=== PATIENT | female | born 1930 | race Two or more races ===

== ENCOUNTER 2017-08-12 10:15 | Inpatient (IN) | payer OTHER ==
[~2017-08-12] VITALS: Ht 154.9 cm; Wt 63.5 kg
[2017-08-12 10:22] VITALS: BP 115/63
[2017-08-12] MEDS ORDERED: SYN.05 PO (10:36)
[2017-08-12] MEDS ORDERED: PRED1SUS OP (10:36)
[2017-08-12] MEDS ORDERED: SODI15SO OP (10:36)
[2017-08-12] MEDS ORDERED: CHOL400C2 PO (10:36)
[2017-08-12] MEDS ORDERED: MULT-1184 PO (10:36)
[2017-08-12] MEDS ORDERED: ALEN70TA1 PO (10:36)
[2017-08-12] MEDS ORDERED: [UNRECOGNIZED DRUG - CODE] PO (10:36)
[2017-08-12] MEDS ORDERED: DORZ10SO1 IO (10:36)
[2017-08-12] MEDS ORDERED: [UNRECOGNIZED DRUG - CODE] IO (10:36)
[2017-08-12] MEDS ORDERED: AMLO5TAB1 PO (10:36)
[2017-08-12] MEDS ORDERED: LISI20TA21 PO (10:36)
[2017-08-12] MEDS ORDERED: MEMA28CE1 PO (10:36)
[2017-08-12] MEDS ORDERED: CARV25TA PO (10:36)
[2017-08-12] MEDS ORDERED: TIM.5OS OP (10:36)
--- NOTE | 2017-08-12 10:38 | NUR ---
PT PLACED ON BED 6 ER MD AT BEDSIDE
--- NOTE | 2017-08-12 10:39 | NUR ---
Patient BIBA to bed 6 at this time.
--- NOTE | 2017-08-12 10:45 | NUR ---
PT BIBA FROM [facility] W/C/O LEFT HIP PAIN S/P FALL WHILE AMBULATING. PER MEDIC PT HAS BUMP ON THE BACK OF HER HEAD, ETIOLOGY UNKNOWN. HX ALZHEIMERS DISEASE, HYPOTHYROIDISM, HTN, HYPERLIPIDEMIA. DENIES N/V/D; SKIN IS PINK/WARM/DRY; AAOX4; LUNGS CLEAR BL; HR EVEN AND REGULAR; PT DENIES ANY FEVER, CP, SOB, OR COUGH AT THIS TIME; PATIENT STATES PAIN OF 9/10 AT THIS TIME; VSS; PATIENT POSITIONED FOR COMFORT; HOB ELEVATED; BEDRAILS UP X2; BED DOWN. ER MD MADE AWARE OF PT STATUS.
[2017-08-12] MEDS ORDERED: MORPHINE SULFATE 2 MG/ML SYR IVP ONE (10:55)
[2017-08-12] MEDS ORDERED: ONDANSETRON 4 MG/2 ML VIAL IVP ONE (10:55)
--- NOTE | 2017-08-12 11:19 | NUR ---
PT TAKEN OFF THE UNIT VIA GURNEY FOR CT OF THE HIP BY INFECTION CONTROL PRACTITIONER MABEL
[2017-08-12 11:46] LABS: BASOPHILS # (AUTO) 0.2 K/uL (0.00-0.22); BASOPHILS % (AUTO) 1.9 % (0.0-2.0); EOSINOPHILS # (AUTO) 0.1 K/uL (0-0.4); EOSINOPHILS % (AUTO) 0.7 % (0.0-4.0); HEMATOCRIT 41.7 % (36-48); HEMOGLOBIN 13.7 g/dL (12.0-16.0); LYMPHOCYTES # (AUTO) 1.8 K/uL (2.5-16.5); LYMPHOCYTES % (AUTO) 16.9 % (20.5-51.1); MEAN CORPUSCULAR HEMOGLOBIN 30 pg (27-31); MEAN CORPUSCULAR HGB CONC 33 g/dL (33-37); MEAN CORPUSCULAR VOLUME 92 fL (80-94); MONOCYTES # (AUTO) 0.3 K/uL (0.8-1.0); MONOCYTES % (AUTO) 3.2 % (1.7-9.3); NEUTROPHILS % (AUTO) 77.3 % (42.2-75.2); PLATELET COUNT (AUTO) 239 K/uL (140-450); RED BLOOD CELL COUNT(AUTO) 4.51 MIL/uL (4.20-5.40); WHITE BLOOD COUNT (AUTO) 10.4 K/uL (4.8-10.8)
[2017-08-12 12:00] LABS: PROTHROMBIN TIME 10.4 secs (10.8-13.4)
[2017-08-12 12:03] LABS: CARBON DIOXIDE 30.5 mmol/L (21-32); CHLORIDE 97 mmol/L (98-107); GLUCOSE 145 mg/dL (74-106); POTASSIUM 3.5 mmol/L (3.5-5.1); SODIUM SERUM 135 mmol/L (136-145); UREA NITROGEN, BLOOD 11 mg/dL (7-18)
[2017-08-12 12:04] LABS: CREATININE 0.9 mg/dL (0.6-1.3)
[2017-08-12 12:19] LABS: ALBUMIN 3.5 g/dL (3.4-5.0); TOTAL BILIRUBIN 0.6 mg/dL (0.0-1.0)
[2017-08-12] MEDS ORDERED: LORazepam 0.5 MG TAB PO ONE (12:30)
[2017-08-12 12:54] LABS: ASPARTATE AMINOTRANSFERASE 10 U/L (15-37)
[2017-08-12] MEDS ORDERED: [UNRECOGNIZED DRUG - OTHER] OP SCH (13:00)
[2017-08-12] MEDS ORDERED: SODIUM CHLORIDE OP SCH (13:00)
[2017-08-12] MEDS ORDERED: BRIMONIDINE TARTRATE IO SCH (13:00)
[2017-08-12] MEDS ORDERED: ONDANSETRON 4 MG/2 ML VIAL IVP PRN (13:00)
[2017-08-12] MEDS ORDERED: MORPHINE SULFATE 4 MG/ML SYR IVP PRN (13:00)
[2017-08-12] MEDS ORDERED: LORazepam 2 MG/ML VIAL IVP PRN (13:00)
--- NOTE | 2017-08-12 13:06 | NUR ---
Patient will be admitted to care of DR VERDUGO. Admited to TELE. Will go to room 124A. Belongings list completed. Report to ADALGISA DALLAS.
[2017-08-12 13:30] VITALS: BP 135/92
--- NOTE | 2017-08-12 13:30 | NUR ---
RECEIVED PT REPORT AT BEDSIDE FROM ER NURSE. PT IS AOX1 AND CONFUSED AND SHOWS NO S/S OF ACUTE DISTRESS ON O2 @ 2L. PT HAS PURPLE DISCOLORATION ON BACK OF HEAD, OTHERWISE SKIN INTACT. ON TELE MONITOR. IV NOTED ON THE L FA WITH IVF'S INFUSING WELL. PT DENIES PAIN. PT WAS EXPLAINED POC FOR TODAY HOWEVER NEEDS CONSTANT REINFORCEMENT. PT'S BED IS LOWERED WITH CALL LIGHT WITHIN REACH. WILL CONTINUE TO MONITOR. FALL PROTOCOL IN PLACE BED ALARM ACTIVATED.
[2017-08-12] MEDS: DEXT 5% /NACL 0.9% 1,000 ML IV SCH ×2 (13:55→23:00)
--- NOTE | 2017-08-12 14:30 | NUR ---
PT IV WAS FOUND INTACT AND DISCONTINUED. WILL INSERT NEW IV.
--- NOTE | 2017-08-12 15:30 | NUR ---
NEW IV IN PLACE IN THE L FA WITH KERLIX WRAPPED TO PREVENT PT FROM PULLING OUT AND PROVIDED PT WITH MITTENS.
[2017-08-12 16:00] VITALS: BP 129/84
--- NOTE | 2017-08-12 17:50 | NUR ---
ADMINISTERED SCHEDULED MEDICATIONS. PT TOLERATED WELL. PT DENIES PAIN. THE BED LOWERED WITH CALL LIGHT WITHIN REACH.
[2017-08-12] MEDS: CARVEDILOL 12.5 MG TAB PO SCH (18:08)
--- NOTE | 2017-08-12 19:30 | NUR ---
GAVE PT REPORT AT BEDSIDE TO NIGHT NURSE, PT ENDORSED IN STABLE CONDITION.
--- NOTE | 2017-08-12 19:31 | NUR ---
RECEIVED BEDSIDE REPORT FROM DAY SHIFT NURSE, UMANG RN, PT RESTING, NO DISTRESS NOTED, ON 2L O2, IV TO L FA 20 G RUNNING D5NS@100 ML/HR, SKIN INTACT, INITIAL ASSESSMENT DONE, ALANIZ DRAINING YELLOW URINE, CALL LIGHT WITHIN REACH, WILL CONTINUE TO MONITOR.
[2017-08-12 20:00] VITALS: BP 108/54
[2017-08-12] MEDS ORDERED: TIMOLOL OP 0.5% 5 ML BTL OP SCH (21:00)
[2017-08-12] MEDS ORDERED: DONEPEZIL 10 MG TAB PO SCH (21:00)
[2017-08-12] MEDS ORDERED: DONEPEZIL HCL PO SCH (21:00)
[2017-08-12] MEDS ORDERED: DORZOLAMIDE 2% OP 10 ML BTL OP SCH (21:00)
[2017-08-12] MEDS: TIMOLOL 0.5% EYE DROPS OP SCH (21:18)
[2017-08-12] MEDS: DORZOLAMIDE HCL 2% OP SCH (21:18)
[2017-08-12] MEDS: EYE OP SCH (21:18)
[2017-08-12] MEDS: DONEPEZIL HCL 10 MG TAB PO SCH (21:21)
--- NOTE | 2017-08-12 21:21 | NUR ---
MEDICATION ADMINISTERED PER MD ORDER, PT TOLERATED WELL, PT RESTING, NO DISTRESS NOTED, CALL LIGHT WITHIN REACH. WILL CONTINUE TO MONITOR.
--- NOTE | 2017-08-12 23:57 | NUR ---
PT VITAL SIGNS TAKEN, NO DISTRESS NOTED, PT SLEEPING, EASY TO AROUSE, CALL LIGHT WITHIN REACH, PT STILL CONFUSED, WILL CONTINUE TO MONITOR.
[2017-08-13] VITALS: BP 125/55
--- NOTE | 2017-08-13 02:45 | NUR ---
PT SLEEPING, EASY TO AROUSE, CALL LIGHT WITHIN REACH, NO DISTRESS NOTED, WILL CONTINUE TO MONITOR.
--- NOTE | 2017-08-13 04:00 | NUR ---
PT VITAL SIGN TAKEN, PT STABLE, SLEEPING, EASY TO AROUSE, NO DISTRESS NOTED, CALL LIGHT WITHIN REACH, WILL CONTINUE TO MONITOR.
[2017-08-13 04:04] VITALS: BP 125/61
--- NOTE | 2017-08-13 06:11 | NUR ---
REPOSITION PT, PT TOLERATED WELL, PT SLEEPING EASY TO AROUSE, NO DISTRESS NOTED, CALL LIGHT WITHIN REACH, WILL CONTINUE TO MONITOR.
[2017-08-13 06:20] LABS: BASOPHILS # (AUTO) 0.1 K/uL (0.00-0.22); BASOPHILS % (AUTO) 0.5 % (0.0-2.0); EOSINOPHILS # (AUTO) 0.1 K/uL (0-0.4); EOSINOPHILS % (AUTO) 0.5 % (0.0-4.0); HEMATOCRIT 37.8 % (36-48); HEMOGLOBIN 12.5 g/dL (12.0-16.0); LYMPHOCYTES # (AUTO) 1.4 K/uL (2.5-16.5); LYMPHOCYTES % (AUTO) 11.1 % (20.5-51.1); MEAN CORPUSCULAR HEMOGLOBIN 31 pg (27-31); MEAN CORPUSCULAR HGB CONC 33 g/dL (33-37); MEAN CORPUSCULAR VOLUME 94 fL (80-94); MONOCYTES # (AUTO) 0.5 K/uL (0.8-1.0); NEUTROPHILS # (AUTO) 10.8 K/uL (1.8-7.7); NEUTROPHILS % (AUTO) 83.9 % (42.2-75.2); PLATELET COUNT (AUTO) 213 K/uL (140-450); RED BLOOD CELL COUNT(AUTO) 4.03 MIL/uL (4.20-5.40); RED CELL DISTRIBUTION WIDTH 12.8 % (11.6-13.7); WHITE BLOOD COUNT (AUTO) 12.9 K/uL (4.8-10.8)
[2017-08-13] MEDS: LEVOTHYROXINE 0.05 MG TAB PO SCH (06:25)
[2017-08-13 06:36] LABS: ANION GAP 9.8 (8-16); CARBON DIOXIDE 27.6 mmol/L (21-32); CHLORIDE 101 mmol/L (98-107); CREATININE 0.7 mg/dL (0.6-1.3); GLUCOSE 123 mg/dL (74-106); POTASSIUM 3.4 mmol/L (3.5-5.1); SODIUM SERUM 135 mmol/L (136-145); UREA NITROGEN, BLOOD 8 mg/dL (7-18)
--- NOTE | 2017-08-13 07:12 | NUR ---
GAVE BEDSIDE REPORT TO DAY NURSE, ALF HECK RESTING, STABLE NO DISTRESS NOTED.
--- NOTE | 2017-08-13 07:15 | NUR ---
RECEIVED PT REPORT AT BEDSIDE FROM NIGHT NURSE. PT IS AOX1 AND CONFUSED AND SHOWS NO S/S OF ACUTE DISTRESS ON O2 @ 2L. PT HAS PURPLE DISCOLORATION ON BACK OF HEAD, OTHERWISE SKIN INTACT. ON TELE MONITOR. IV NOTED ON THE L FA WITH IVF'S INFUSING WELL. PT DENIES PAIN. PT WAS EXPLAINED POC FOR TODAY HOWEVER NEEDS CONSTANT REINFORCEMENT. PT'S BED IS LOWERED WITH CALL LIGHT WITHIN REACH. WILL CONTINUE TO MONITOR. FALL PROTOCOL IN PLACE BED ALARM ACTIVATED.
--- NOTE | 2017-08-13 07:30 | NUR ---
PT DAUGHTER BHAKTI TURNER CAME IN TO SIGN CONSENT FORM FOR PT'S PROCEDURE.
--- NOTE | 2017-08-13 07:40 | NUR ---
BHAKTI TURNER SPOKE WITH DR JOHNSON REGARDING PROCEDURE AND VERBALIZED UNDERSTANDING OF RISK AND BENEFITS FOR TX.
--- NOTE | 2017-08-13 07:45 | NUR ---
CONSENT SIGNED BY BHAKTI TURNER DAUGHTER OF PT.
--- NOTE | 2017-08-13 07:50 | NUR ---
SPOKE WITH DR JOHNSON REGARDING PT ECHOCARDIOGRAM WILL NOT BE READ BY Holli VERDUGO UNTIL 1000 PER STAR FROM CARDIO.
[2017-08-13 08:00] VITALS: BP 129/59
[2017-08-13] MEDS: CARVEDILOL 12.5 MG TAB PO SCH ×2 (08:00→16:33)
[2017-08-13] MEDS: VITAMIN D 400 IU TAB PO SCH (08:41)
[2017-08-13] MEDS: amLODIPine 5 MG TAB PO SCH (08:41)
[2017-08-13] MEDS: LISINOPRIL 20 MG TAB PO SCH (08:42)
[2017-08-13] MEDS: MULTIVITAMIN/MINERALS 1 TAB PO SCH (08:42)
[2017-08-13] MEDS: NAMENDA 28 MG PO SCH ×2 (08:42→20:55)
[2017-08-13] MEDS ORDERED: NON-FORMULARY ITEM (Cholecalciferol (Vitamin D3) (Vitamin D3) 1 TAB) PO SCH (09:00)
[2017-08-13] MEDS ORDERED: MEMANTINE HCL PO SCH (09:00)
[2017-08-13] MEDS ORDERED: prednisoLONE 1% OP 5 ML BTL OP SCH (09:00)
[2017-08-13] MEDS: DEXT 5% /NACL 0.9% 1,000 ML IV SCH ×2 (09:08→20:00)
[2017-08-13] MEDS: BRIMONIDINE 0.15% OP SCH ×3 (09:10→16:32)
[2017-08-13] MEDS: EYE OP SCH ×6 (09:10→20:55)
[2017-08-13] MEDS: DORZOLAMIDE HCL 2% OP SCH ×2 (09:10→20:55)
[2017-08-13] MEDS: PREDNISOLONE AC 1% OP SCH (09:11)
[2017-08-13] MEDS: TIMOLOL 0.5% EYE DROPS OP SCH ×2 (09:12→20:55)
[2017-08-13] MEDS: SODIUM CHLORIDE 5% OP SCH ×3 (09:14→16:33)
--- NOTE | 2017-08-13 09:40 | NUR ---
PT IS NPO AND WAS NOT GIVEN PO MEDICATIONS. ADMINISTERED OTHER AM MEDICATIONS NOTED ON THE EMAR. PT TOLERATED ACTIVITY WELL. PT DENIES PAIN AND SHOWS NO S/S OF ACUTE DISTRESS ON O2 @ 2L.
--- NOTE | 2017-08-13 09:53 | NUR ---
PATIENT HAS BEEN SCREENED AND CATEGORIZED MODERATE NUTRITION RISK. PATIENT WILL BE SEEN WITHIN 3-5 DAYS OF ADMISSION. 08/15/17-08/17/[address]
--- NOTE | 2017-08-13 10:30 | NUR ---
PT IS SLEEPING AND SHOWS NO S/S OF ACUTE DISTRESS.
--- NOTE | 2017-08-13 11:10 | NUR ---
PT LEFT TO PROCEDURE IN STABLE CONDITION.
[2017-08-13] MEDS ORDERED: ceFAZolin 1,000 MG VIAL ONE ×2 (11:36→13:32)
[2017-08-13] MEDS ORDERED: ePHEDrine 50 MG/ML VIAL ONE (11:40)
[2017-08-13] MEDS ORDERED: PROPOFOL 200 MG/20 ML VIAL IV ONE (11:40)
[2017-08-13] MEDS ORDERED: MIDAZOLAM 2 MG/2 ML VIAL ONE (11:53)
[2017-08-13] MEDS ORDERED: fentaNYL 0.05 MG/ML VIAL ONE (11:53)
[2017-08-13] MEDS ORDERED: MORPHINE SULFATE 4 MG/ML SYR ONE (11:53)
[2017-08-13] MEDS ORDERED: METOCLOPRAMIDE 10 MG/2 ML INJ VIAL IVP PRN (12:40)
[2017-08-13] MEDS ORDERED: MORPHINE SULFATE 4 MG/ML SYR IVP PRN ×2 (12:40)
[2017-08-13] MEDS ORDERED: MIDAZOLAM 2 MG/2 ML VIAL IV ONE (12:40)
[2017-08-13] MEDS ORDERED: MORPHINE SULFATE 2 MG/ML SYR IVP PRN (12:40)
[2017-08-13 14:30] VITALS: BP 115/57
--- NOTE | 2017-08-13 14:30 | NUR ---
PT IS BACK ON UNIT. V/S CHARTED. PT SHOWS NO S/S OF ACUTE DISTRESS ON O2 @ 2L NC. NOTED NEW IV SITE ON THE R H WITH IVF'S INFUSING WELL. L FA WITH DISCOLORATION AT PREVIOUS IV SITE THAT WAS INFILTRATED. SCD'S IN PLACE. ABDUCTOR PILLOW IN PLACE. APPLIED MITTEN TO R H TO SECURE IV. THE BED IS IN LOW POSITION WITH CALL LIGHT WITHIN REACH.
--- NOTE | 2017-08-13 15:45 | NUR ---
PT IS SLEEPING AND SHOWS NO S/S OF ACUTE DISTRESS ON O2 @ 2L NC.
[2017-08-13 16:00] VITALS: BP 145/69
[2017-08-13] MEDS ORDERED: POTASSIUM CHLORIDE 10 MEQ TABER PO SCH (16:30)
--- NOTE | 2017-08-13 16:43 | NUR ---
ADMINISTERED SCHEDULED MEDICATIONS. PT TOLERATED WELL. PT IS LAID FLAT AFTER SURGERY AND SHOWS NO S/S OF ACUTE DISTRESS ON O2 @ 2L NC.
--- NOTE | 2017-08-13 18:49 | NUR ---
PT IS EATING DINNER AND SHOWS NO S/S OF ACUTE DISTRESS ON O2 @ 2L NC. BED IN LOW POSITION WITH CALL LIGHT WITHIN REACH.
--- NOTE | 2017-08-13 19:15 | NUR ---
GAVE PT REPORT AT BEDSIDE TO NIGHT NURSE. PT ENDORSED IN STABLE CONDITION.
--- NOTE | 2017-08-13 19:16 | NUR ---
RECEIVED REPORT FROM DAY SHIFT RN, PT IS AWAKE, CONFUSED ON 2L O2 VIA NASAL CANNULA. NON-INTACT SKIN, INCISION FROM SURGERY TO LEFT HIP DRESSING DRY AND INTACT. 20G IV TO RIGHT HAND, COVERED BY MITTEN, INFUSING D5NS@100ML/HR. PT IS ON BEDREST. ALANIZ CATHETER IN PLACE WITH CLEAR YELLOW URINE IN BAG. SAFETY PRECAUTION IN PLACE. UPDATED BOARD. DISCUSSED PLAN OF CARE WITH PT. RELATIVE AT BEDSIDE. VITAL SIGNS WITHIN NORMAL LIMITS. BED IN LOW POSITION, CALL LIGHT WITHIN REACH. WILL CONTINUE TO MONITOR.
[2017-08-13 20:00] VITALS: BP 130/57
[2017-08-13] MEDS: DONEPEZIL HCL 10 MG TAB PO SCH (21:00)
--- NOTE | 2017-08-13 21:00 | NUR ---
ADMINISTERED SCHEDULED HOME MEDICATIONS, PT TOLERATED VERY WELL. PT DENIES HAVING ANY PAIN. PT IN STABLE CONDITION, NO SIGNS OF DISTRESS NOTED. BED IN LOW POSITION, CALL LIGHT WITHIN REACH. WILL CONTINUE TO MONITOR.
[2017-08-14] VITALS: BP 103/45
--- NOTE | 2017-08-14 00:15 | NUR ---
PT DENIES HAVING ANY PAIN. VITAL SIGNS ARE STABLE. NO SIGNS OF DISTRESS NOTED, PT IS IN STABLE CONDITION. BED IN LOW POSITION, CALL LIGHT WITHIN REACH. WILL CONTINUE TO MONITOR.
--- NOTE | 2017-08-14 03:40 | NUR ---
PATIENT AWAKENS BY NAME. PT VITAL SIGNS WNL. PT DENIES PAIN. PT IN STABLE CONDITION, NO SIGNS OF DISTRESS NOTED. BED IN LOW POSITION, CALL LIGHT WITHIN REACH. WILL CONTINUE TO MONITOR.
[2017-08-14 04:00] VITALS: BP 130/55
[2017-08-14] MEDS: DEXT 5% /NACL 0.9% 1,000 ML IV SCH ×3 (05:00→21:10)
[2017-08-14 05:57] LABS: BASOPHILS # (AUTO) 0.1 K/uL (0.00-0.22); EOSINOPHILS # (AUTO) 0.1 K/uL (0-0.4); EOSINOPHILS % (AUTO) 1.3 % (0.0-4.0); HEMATOCRIT 30.3 % (36-48); LYMPHOCYTES # (AUTO) 1.6 K/uL (2.5-16.5); LYMPHOCYTES % (AUTO) 17.6 % (20.5-51.1); MEAN CORPUSCULAR HEMOGLOBIN 31 pg (27-31); MEAN CORPUSCULAR HGB CONC 33 g/dL (33-37); MEAN CORPUSCULAR VOLUME 93 fL (80-94); MONOCYTES # (AUTO) 0.7 K/uL (0.8-1.0); NEUTROPHILS # (AUTO) 6.8 K/uL (1.8-7.7); NEUTROPHILS % (AUTO) 72.1 % (42.2-75.2); PLATELET COUNT (AUTO) 165 K/uL (140-450); RED BLOOD CELL COUNT(AUTO) 3.28 MIL/uL (4.20-5.40); RED CELL DISTRIBUTION WIDTH 13.1 % (11.6-13.7); WHITE BLOOD COUNT (AUTO) 9.3 K/uL (4.8-10.8)
[2017-08-14 06:12] LABS: ANION GAP 8.2 (8-16); CARBON DIOXIDE 27.3 mmol/L (21-32); CHLORIDE 106 mmol/L (98-107); CREATININE 0.6 mg/dL (0.6-1.3); GLUCOSE 141 mg/dL (74-106); POTASSIUM 3.5 mmol/L (3.5-5.1); SODIUM SERUM 138 mmol/L (136-145); UREA NITROGEN, BLOOD 8 mg/dL (7-18)
[2017-08-14] MEDS: LEVOTHYROXINE 0.05 MG TAB PO SCH (06:39)
--- NOTE | 2017-08-14 07:28 | NUR ---
ENDORSED PT TO DAY SHIFT RN. PT IN STABLE CONDITION.
--- NOTE | 2017-08-14 07:29 | NUR ---
REPORT RECEIVED FROM CHROMIUM PLATER, PT AWAKE ORIENTED X1 TO HERSELF ONLY, RESTING QUIETLY IN NAD, RESP EVEN UNLABORED ON 2L NC, SKIN WARM DRY COLOR WNL, LEFT HIP WITH DRESSING CDI, ABDUCTOR PILLOW IN PLACE, RIGHT HAND IV INFUSING WELL, SITE CLEAR, MITTEN IN PLACE TO PREVENT PT FROM PULLING IV OUT, PT DENIES PAIN OR DISCOMFORT, PLAN OF CARE REVIEWED, PT VERBALIZED FULL UNDERSTANDING, CALL SMITH WITHIN REACH, SIDE RAILS UP X2, BED LOCKED IN LOW POSITION, WILL CONTINUE TO MONITOR.
[2017-08-14 08:00] VITALS: BP 129/51
[2017-08-14] MEDS: CARVEDILOL 12.5 MG TAB PO SCH ×2 (08:51→17:43)
[2017-08-14] MEDS: MULTIVITAMIN/MINERALS 1 TAB PO SCH (08:52)
[2017-08-14] MEDS: VITAMIN D 400 IU TAB PO SCH (08:52)
[2017-08-14] MEDS: MORPHINE SULFATE 2 MG/ML SYR IVP PRN (08:53)
[2017-08-14] MEDS: SODIUM CHLORIDE 5% OP SCH ×3 (08:53→17:43)
--- NOTE | 2017-08-14 08:53 | NUR ---
DUE MEDS GIVEN, SWALLOWS PO PILLS WELL WITHOUT PROBLEM, MORPHINE GIVEN PER PT BEFORE STARTING PHYSICAL THERAPY.
[2017-08-14] MEDS: LISINOPRIL 20 MG TAB PO SCH (09:00)
[2017-08-14] MEDS: amLODIPine 5 MG TAB PO SCH (09:00)
[2017-08-14] MEDS: BRIMONIDINE 0.15% OP SCH ×3 (10:17→17:43)
[2017-08-14] MEDS: DORZOLAMIDE HCL 2% OP SCH ×2 (10:17→21:08)
[2017-08-14] MEDS: EYE OP SCH ×6 (10:17→21:08)
[2017-08-14] MEDS: TIMOLOL 0.5% EYE DROPS OP SCH ×2 (10:17→21:09)
[2017-08-14] MEDS: PREDNISOLONE AC 1% OP SCH (10:18)
--- NOTE | 2017-08-14 10:20 | NUR ---
DR Marko VERDUGO AT BEDSIDE
--- NOTE | 2017-08-14 10:24 | NUR ---
PT SITTING UP IN CHAIR WITH PHYSICAL THERAPY, DR JOHNSON AT BEDSIDE
[2017-08-14 12:00] VITALS: BP 119/52
--- NOTE | 2017-08-14 15:39 | NUR ---
SPOKE WITH THE DAUGHTER BHAKTI WHO HAD CONCERNS ABOUT THE PHYSICAL THERAPY AFTER DISCHARGE. I DID INFORM HER THAT [facility]ES PROVIDE PHYSICAL THERAPY. SHE SAID SHE WAS RELIEVED.
[2017-08-14 16:00] VITALS: BP 132/62
--- NOTE | 2017-08-14 17:47 | NUR ---
PT WITH TEMP 101. NO PRN ORDER OF TYLENOL , DR VERDUGO PAGED AT THIS TIME. PT SLEEPING QUIETLY IN NAD, AROUSES EASILY, BLANKETS REMOVED, AND ICE PACKS TO UNDER ARMS. PT NOW SITTING UP FOR DINNER.
[2017-08-14] MEDS ORDERED: ACETAMINOPHEN 325 MG TAB PO PRN (18:15)
--- NOTE | 2017-08-14 18:51 | NUR ---
PT MEDICATED WITH TYLENOL FOR FEVER PER DR VERDUGO, A TELEPHONE ORDER.
--- NOTE | 2017-08-14 19:26 | NUR ---
REPORT GIVEN TO COIN ROLLING MACHINE OPERATOR NURSE, PT IN STABLE CONDITION.
--- NOTE | 2017-08-14 19:27 | NUR ---
RECD. RESTING IN BED, AWAKE/ALERT, CONFUSED. ON 02 AT 2 LITERS VIA N/C, RESPIRATION EVEN AND UNLABORED. 02 SAT - 95% IV OF D5 NS AT 100 ML/HR INFUSING , LEFT WRIST G 20. INCISION IN THE LEFT HIP COVERED WITH DRESSING DRY AND INTACT. BED WITH TRAPEZE. HIP ABDUCTOR IN PLACED. F/C PATENT DRAINING CLEAR YELLOW URINE. ON BILATERAL LEG SEQUENTIALS. SAFETY MEASURES ENFORCED. REORIENTED TO HOSPITAL SETTING. PLAN OF CARE FOR THE SHIFT DISCUSSED. NEEDS REINFORCEMENT. NO APPEARANCE OF PAIN NOTED 0/10. WILL CONTINUE TO MONITOR.
[2017-08-14 20:00] VITALS: BP 97/42
--- NOTE | 2017-08-14 20:00 | NUR ---
Patient's Plan of Care was discussed and reviewed with AVIONICS ELECTRICAL ENGINEER: VINCE
[2017-08-14] MEDS: DONEPEZIL HCL 10 MG TAB PO SCH (21:09)
--- NOTE | 2017-08-14 21:09 | NUR ---
DUE NIGHT MEDICATIONS GIVEN. TOLERATED WELL.
--- NOTE | 2017-08-14 22:00 | NUR ---
SLEEPING COMFORTABLY IN BED.
[2017-08-15] VITALS: BP 105/42
[2017-08-15] MEDS: DEXT 5% /NACL 0.9% 1,000 ML IV SCH ×2 (01:00→11:00)
[2017-08-15 04:00] VITALS: BP 109/40
--- NOTE | 2017-08-15 05:00 | NUR ---
PULLED OUT IV LINE, WILL INSERT NEW IV LINE LATER.
--- NOTE | 2017-08-15 05:15 | NUR ---
NEW IV LINE INSERTED BY CHARGE NURSE MIRIAM IN THE RIGHT FOREARM G22. COOPERATIVE THOUGH WITH CONFUSION.
[2017-08-15 05:54] LABS: BASOPHILS # (AUTO) 0.1 K/uL (0.00-0.22); BASOPHILS % (AUTO) 0.9 % (0.0-2.0); EOSINOPHILS # (AUTO) 0.1 K/uL (0-0.4); EOSINOPHILS % (AUTO) 1.3 % (0.0-4.0); HEMATOCRIT 27.9 % (36-48); HEMOGLOBIN 9.2 g/dL (12.0-16.0); LYMPHOCYTES % (AUTO) 19.2 % (20.5-51.1); MEAN CORPUSCULAR HEMOGLOBIN 31 pg (27-31); MEAN CORPUSCULAR HGB CONC 33 g/dL (33-37); MEAN CORPUSCULAR VOLUME 93 fL (80-94); MONOCYTES # (AUTO) 0.8 K/uL (0.8-1.0); MONOCYTES % (AUTO) 7.5 % (1.7-9.3); NEUTROPHILS # (AUTO) 7.5 K/uL (1.8-7.7); NEUTROPHILS % (AUTO) 71.1 % (42.2-75.2); PLATELET COUNT (AUTO) 148 K/uL (140-450); RED CELL DISTRIBUTION WIDTH 13.1 % (11.6-13.7); WHITE BLOOD COUNT (AUTO) 10.5 K/uL (4.8-10.8)
[2017-08-15 06:09] LABS: ANION GAP 7.1 (8-16); CARBON DIOXIDE 28.1 mmol/L (21-32); CHLORIDE 107 mmol/L (98-107); CREATININE 0.7 mg/dL (0.6-1.3); GLUCOSE 142 mg/dL (74-106); POTASSIUM 3.2 mmol/L (3.5-5.1); SODIUM SERUM 139 mmol/L (136-145); UREA NITROGEN, BLOOD 8 mg/dL (7-18)
--- NOTE | 2017-08-15 07:15 | NUR ---
CONDITION REMAIN STABLE. ENDORSED TO ADALGISA ARCHIBALD FOR CONTINUITY OF CARE.
[2017-08-15] MEDS: LEVOTHYROXINE 0.05 MG TAB PO SCH (07:18)
--- NOTE | 2017-08-15 07:20 | NUR ---
RECEIVED REPORT FROM FOUNDRY FINISHER NURSE PT IS RESTING IN BED, A/OX1, AMBULATORY, IV IS ON THE RIGHT FA, PATENT, INTACT, FLUSHING WELL, PT IS ON O2 2L NC, PT HAS ALANIZ CATHETER IN PLACE, PT HAS ABDUCTOR PILLOW IN PLACE, PT IS S/P LEFT HIP ORIF ON 08/13, NO S/S OF RESPIRATORY DISTRESS OR DISCOMFORT NOTED, SAFETY/FALL PRECAUTIONS ARE IN PLACE, DISCUSSED PLAN OF CARE WITH PT, PT VERBALIZED UNDERSTANDING, REINFORCEMENT/RE ORIENTATION IS NEEDED, CALL LIGHT IS WITHIN REACH, WILL CONTINUE TO MONITOR.
[2017-08-15 08:00] VITALS: BP 140/53
[2017-08-15] MEDS: LISINOPRIL 20 MG TAB PO SCH (08:21)
[2017-08-15] MEDS: VITAMIN D 400 IU TAB PO SCH (08:22)
[2017-08-15] MEDS: MULTIVITAMIN/MINERALS 1 TAB PO SCH (08:22)
[2017-08-15] MEDS: amLODIPine 5 MG TAB PO SCH (08:22)
[2017-08-15] MEDS: CARVEDILOL 12.5 MG TAB PO SCH (08:23)
[2017-08-15] MEDS: NAMENDA 28 MG PO SCH (08:25)
[2017-08-15] MEDS: PREDNISOLONE AC 1% OP SCH (08:28)
[2017-08-15] MEDS: EYE OP SCH ×4 (08:28→12:32)
[2017-08-15] MEDS: BRIMONIDINE 0.15% OP SCH ×2 (08:28→12:32)
[2017-08-15] MEDS: DORZOLAMIDE HCL 2% OP SCH (08:28)
[2017-08-15] MEDS: TIMOLOL 0.5% EYE DROPS OP SCH (08:29)
[2017-08-15] MEDS: SODIUM CHLORIDE 5% OP SCH ×2 (08:29→12:32)
--- NOTE | 2017-08-15 10:00 | NUR ---
PATIENT IS OUT OF BED WORKING WITH PHYSICAL THERAPY, PT IS SITTING ON CHAIR AT THIS TIME.
[2017-08-15 12:00] VITALS: BP 125/74
--- NOTE | 2017-08-15 12:00 | NUR ---
PATIENT IS RESTING IN BED, PATIENT'S DAUGHTER IS ASSISTING PT WITH LUNCH.
[2017-08-15] MEDS: MORPHINE SULFATE 2 MG/ML SYR IVP PRN (12:31)
[2017-08-15] MEDS ORDERED: POTASSIUM CHLORIDE 10 MEQ TABER PO SCH (13:00)
--- NOTE | 2017-08-15 13:00 | NUR ---
INFORMED PT AND PT DAUGHTER THE PT WOULD BE DISCHARGED TODAY AND PICKED UP AT 1400.
--- NOTE | 2017-08-15 13:17 | NUR ---
CM NOTE PATIENT TO BE PICKED UP BY [facility] GOING TO [facility], RM 9C. ETA 1400. DRAGAN DIANA MADE AWARE. #FOR RN REPORT: [phone]
--- NOTE | 2017-08-15 13:40 | NUR ---
PAGED DR. VERDUGO, ASKED DR. VERDUGO IF HE WANTED TO THE PATIENT TO BE DISCHARGED WITH THE ALANIZ CATHETER, DR. VERDUGO SAID YES, IT WAS FINE TO LEAVE THE ALANIZ CATHETER IN.
--- NOTE | 2017-08-15 14:00 | NUR ---
CALLED [facility] AT [phone] AND GAVE REPORT TO ADALGISA FONSECA.
--- NOTE | 2017-08-15 14:35 | NUR ---
PT DISCHARGE INSTRUCTIONS GIVEN, PT ID WRIST BAND REMOVED, IV REMOVED, CATHETER TIP INTACT. PT STABLE UPON DISCHARGE ACCOMPANIED BY [facility].
== END 2017-08-15 14:35 | DRG 469 ==
LOC: MED 10:15 → MTU 13:05
PROVIDERS: ADMIT Preventive Medicine Preventive Medicine/Occupational Environmental Medicine; ATTEND Preventive Medicine Preventive Medicine/Occupational Environmental Medicine
PROC: 0SRS0JZ Replacement of Left Hip Joint, Femoral Surface with Synthetic Substitute, Open Approach (ICD-10-PCS; principal; 2017-08-13 11:30)
DX: S72.012A Unspecified intracapsular fracture of left femur, initial encounter for closed fracture (principal); G93.49 Other encephalopathy; D64.9 Anemia, unspecified; G30.9 Alzheimer's disease, unspecified; F02.80 Dementia in other diseases classified elsewhere, unspecified severity, without behavioral disturbance, psychotic disturbance, mood disturbance, and anxiety; E83.51 Hypocalcemia; E03.9 Hypothyroidism, unspecified; S00.03XA Contusion of scalp, initial encounter; H40.9 Unspecified glaucoma; E78.5 Hyperlipidemia, unspecified; I10 Essential (primary) hypertension; M81.0 Age-related osteoporosis without current pathological fracture; E87.6 Hypokalemia; Z79.899 Other long term (current) drug therapy; W01.0XXA Fall on same level from slipping, tripping and stumbling without subsequent striking against object, initial encounter; Y93.89 Activity, other specified; Y92.89 Other specified places as the place of occurrence of the external cause; Y99.8 Other external cause status; Z78.0 Asymptomatic menopausal state
CPT/HCPCS: 36415; 70450; 71010; 72192; 73501; 80048; 80053; 83880; 84484; 85025; 85610; 85730; 86886; 86900; 86901; 87081; 93005; 96374; 96375; 97110; 97116; 97140; 97530; 99285; C1776; J0690; J1644; J2250; J2270; J2405; J2704; J3010; J7042; Q0092

== ENCOUNTER 2019-06-25 11:48 | Emergency (ER) | payer OTHER ==
[~2019-06-25] VITALS: Ht 160 cm; Wt 44.0 kg
[~2019-06-25 11:48] MED LIST: ALEN70TA1 PO; AMLO5TAB1 PO; CARV25TA PO; CHOL400C2 PO; DORZ10SO1 IO; LISI20TA21 PO; MEMA28CE1 PO; MULT-1184 PO; PRED1SUS OP; SODI15SO OP; SYN.05 PO; TIM.5OS OP; [UNRECOGNIZED DRUG - CODE] IO; [UNRECOGNIZED DRUG - CODE] PO
--- NOTE | 2019-06-25 11:48 | NUR ---
Patient STEVE HUDSON from [facility], transferred to bed 11. RN evaluating patient at bedside.
[2019-06-25 11:58] VITALS: BP 113/45
--- NOTE | 2019-06-25 12:05 | NUR ---
XRAY AT BEDSIDE
--- NOTE | 2019-06-25 12:08 | NUR ---
88F BIB EMS FOR RT 3RD AND 4TH FINGER PAIN X TODAY. SMASHED FINGERS IN DOOR TODAY. BLEEDING NOTED, CONTROLLED. HX- DEMENTIA, HTN, GLAUCOMA
--- NOTE | 2019-06-25 12:20 | NUR ---
IM meds given, er md at bedside
[2019-06-25] MEDS: MORPHINE SULFATE 2 MG/ML SYR IM ONE (12:21)
--- NOTE | 2019-06-25 12:24 | NUR ---
Dr. Posadas evaluating patient at bedside.
[2019-06-25] MEDS ORDERED: LIDOCAINE MPF 1% - 5 mL VIAL 5 ML ONE (12:43)
[2019-06-25] MEDS: MORPHINE SULFATE 4 MG/ML SYR IM ONE (12:58)
[2019-06-25] MEDS: LIDOCAINE 1% ***ER ONLY *** 10 MG/ML VIAL INJ ONE (13:01)
[2019-06-25] MEDS: NEOMYCIN/POLYMYXIN/BACITRACIN 0.9 GM/1 PKT TP ONE (13:01)
--- NOTE | 2019-06-25 13:27 | NUR ---
NOTIFIED RADIOLOGY OF ORDER FOR CD IMAGES.
--- NOTE | 2019-06-25 14:30 | NUR ---
PATIENT REMOVED SPLINT FROM RIGHT ARM AGAIN. EMT AT BEDSIDE RE-APPLYING.
--- NOTE | 2019-06-25 14:54 | NUR ---
Patient discharged with v/s stable. Written and verbal after care instructions given and explained. Patient is confused, transport from [facility] signed for patient and verbalized understanding of d/c teaching. Amb[facility] with to [facility]. All questions addressed prior to discharge. ID band removed. Patient advised to follow up with PMD. Rx of motrin, keflex, and norco given. Patient educated on indication of medication including possible reaction and side effects. Opportunity to ask questions provided and answered.
[2019-06-25 14:56] VITALS: BP 111/72
== END 2019-06-25 14:54 | disposition home or self-care (01) ==
LOC: MED 11:48
DX: S62.664A Nondisplaced fracture of distal phalanx of right ring finger, initial encounter for closed fracture (principal); S62.662A Nondisplaced fracture of distal phalanx of right middle finger, initial encounter for closed fracture; S61.212A Laceration without foreign body of right middle finger without damage to nail, initial encounter; I10 Essential (primary) hypertension; G30.9 Alzheimer's disease, unspecified; F02.80 Dementia in other diseases classified elsewhere, unspecified severity, without behavioral disturbance, psychotic disturbance, mood disturbance, and anxiety; E03.9 Hypothyroidism, unspecified; Z79.899 Other long term (current) drug therapy; Z79.1 Long term (current) use of non-steroidal anti-inflammatories (NSAID); W23.0XXA Caught, crushed, jammed, or pinched between moving objects, initial encounter; Y93.89 Activity, other specified; Y92.89 Other specified places as the place of occurrence of the external cause; Y99.8 Other external cause status
CPT/HCPCS: 11740; 12001; 29130; 73140; 90471; 90715; 96372; 99283; J2001; J2270; Q0092; 11730; 29105